=== PATIENT | male | born 1960 | race Caucasian/White ===

== ENCOUNTER 2017-04-15 05:23 | Day surgery (SDC) | payer OTHER ==
[~2017-04-15] VITALS: Ht 175.3 cm; Wt 108.9 kg
[~2017-04-15 05:23] MED LIST: ALPRAZOLAM1 MG PO; AMLODIPINE BESY10 MG PO; ASPIRIN E.C.81 M1 PO; BACTRIM,SEPT1 TABLET PO; CELEBREX200 MG PO; CYMBALTA60 MG PO; Corgard PO; Cymbalta PO; DILAUDID2 MG PO; DURAGESIC75 MCG TD; ENDOCET 5-3251 EACH PO; FLEXERIL10 MG PO; FLONASE16 G1 BOTH NARES; HYZAAR 100-21 TABLET PO; KADIAN60 MG PO; LO-DOSE ASPIRIN81 M1 PO; LOSARTAN-HCTZ1 EAC1 PO; LUNESTA3 MG PO; NADOLOL40 MG PO; NEURONTIN600 MG PO; NEURONTIN800 MG PO; NICODERM CQ1 EAC2 TD; NICOTINE PATCH1 EAC2 TD; NORVASC10 MG PO; NUCYNTA ER250 MG PO; NUVIGIL250 MG PO; OXYCODONE HCL10 MG PO; OXYCODONE HCL15 MG PO; OXYCONTIN30 MG PO; SPIRIVA1 INHALATI IH; TEKTURNA300 MG PO; TOPAMAX50 MG PO; VYTORIN 10/41 TABLET PO; Vicodin,Lortab 5/500 PO; WELLBUTRIN SR150 MG PO
[2017-04-15 06:06] VITALS: BP 130/85
[2017-04-15 10:05] VITALS: BP 124/75
[2017-04-15 11:47] VITALS: BP 115/80
== END 2017-04-15 12:12 | disposition home or self-care (01) ==
LOC: SDC 05:23
DX: K80.10 Calculus of gallbladder with chronic cholecystitis without obstruction (principal); K66.0 Peritoneal adhesions (postprocedural) (postinfection); I10 Essential (primary) hypertension; E78.5 Hyperlipidemia, unspecified; J44.9 Chronic obstructive pulmonary disease, unspecified; Z95.828 Presence of other vascular implants and grafts; Z79.82 Long term (current) use of aspirin
CPT/HCPCS: 88304; J0330; J0690; J1170; J2405; J2710; J3010

== ENCOUNTER 2018-02-07 04:46 | Emergency (ER) | payer OTHER, BC ==
[~2018-02-07] VITALS: Ht 175.3 cm; Wt 107.3 kg
[2018-02-07 07:12] VITALS: BP 108/74
== END 2018-02-07 07:19 | disposition short-term general hospital (02) ==
LOC: EME → EDBD 04:46 → EME 07:19
DX: T81.31XA Disruption of external operation (surgical) wound, not elsewhere classified, initial encounter (principal); W10.9XXA Fall (on) (from) unspecified stairs and steps, initial encounter; E78.5 Hyperlipidemia, unspecified; F17.200 Nicotine dependence, unspecified, uncomplicated; Z96.652 Presence of left artificial knee joint; Z79.82 Long term (current) use of aspirin
CPT/HCPCS: 73564; 99281; 99285; J0690; J2270; J2405; J3010